=== PATIENT | male | born 1940 | race Caucasian/White ===

== ENCOUNTER 2019-09-21 07:41 | Day surgery (SDC) | payer MEDICARE ==
[~2019-09-21 07:41] MED LIST: ACETAMINOPHEN 325 MG TABLET PO PRN; CEFAZOLIN SODIUM 2 GM in DEXTROSE 5%-WATER 100 ML IV PRN; CELECOXIB 200 MG CAPSULE PO PRN; GABAPENTIN 100 MG CAPSULE PO PRN; LACTATED RINGERS 1000 ML IV PRN; LIDOCAINE 0.5% INJ-PF (5 MG/ML) 50 ML SDV SUBCUT PRN; ONDANSETRON HCL INJ/PF 4 MG/2 ML SDV IV PRN; OXYCODONE HCL SR 10 MG TABLET PO PRN; TRAMADOL HCL 50 MG TABLET PO PRN; TRANEXAMIC ACID INJ/PF 1,000 MG/10 ML SDV IV PRN; TRANEXAMIC ACID INJ/PF 1,000 MG/10 ML SDV ONE; VANCOMYCIN HCL 1,000 MG in DEXTROSE 5%-WATER 250 ML IV PRN
[2019-09-21] MEDS ORDERED: CELECOXIB 200 MG CAPSULE ONE (07:57)
[2019-09-21] MEDS ORDERED: OXYCODONE HCL SR 10 MG TABLET PO ONE (07:57)
[2019-09-21] MEDS ORDERED: ACETAMINOPHEN 325 MG TABLET ONE (07:57)
[2019-09-21] MEDS ORDERED: ONDANSETRON HCL INJ/PF 4 MG/2 ML SDV ONE (07:57)
[2019-09-21] MEDS ORDERED: TRAMADOL HCL 50 MG TABLET ONE (07:57)
[2019-09-21] MEDS ORDERED: GABAPENTIN 100 MG CAPSULE ONE (07:58)
[2019-09-21] MEDS ORDERED: PANTOPRAZOLE SODIUM 20 MG TABLET.DR PO ONE (07:58)
[2019-09-21 08:53] LABS: HEMATOCRIT 35.6 % (37.9-51.0); HEMOGLOBIN 11.9 g/dL (13.5-17.0); MEAN CORPUSCULAR HEMOGLOBIN 29.1 pg (27.0-33.4); MEAN CORPUSCULAR HGB CONC 33.4 g/dL (32.0-36.0); MEAN CORPUSCULAR VOLUME 87 fl (80-97); PLATELET COUNT 188 10^3/uL (150-450); RED BLOOD COUNT 4.08 10^6/uL (4.35-5.55); WHITE BLOOD COUNT 6.3 10^3/uL (4.0-10.5)
[2019-09-21 09:11] LABS: ANION GAP 9 (5-19); BLOOD UREA NITROGEN 44 mg/dL (7-20); CALCIUM 9.8 mg/dL (8.4-10.2); CARBON DIOXIDE 28 mmol/L (22-30); CHLORIDE 102 mmol/L (98-107); GLUCOSE 126 mg/dL (75-110); POTASSIUM 4.6 mmol/L (3.6-5.0)
[2019-09-21] MEDS ORDERED: KETOROLAC TROMETHAMINE INJ/PF 30 MG/1 ML SDV ONE (09:49)
[2019-09-21] MEDS ORDERED: VANCOMYCIN HCL INJ 1000 MG VIAL ONE (09:49)
[2019-09-21] MEDS ORDERED: GENTAMICIN SULFATE INJ 80 MG/2 ML VIAL ONE (09:49)
[2019-09-21] MEDS ORDERED: BUPIVACAINE HCL 0.25 % INJ/PF (2.5 MG/1 ML) 30 ML VIAL ONE (09:49)
[2019-09-21] MEDS ORDERED: BACITRACIN INJ 50,000 UNIT VIAL ONE (09:50)
[2019-09-21] MEDS ORDERED: FENTANYL CITRATE INJ/PF 100 MCG/2 ML AMPUL ONE (10:39)
[2019-09-21] MEDS ORDERED: MIDAZOLAM 2 MG/2 ML INJ ONE (10:40)
[2019-09-21] MEDS ORDERED: PROPOFOL INJ 200 MG/20 ML VIAL IV ONE (10:40)
[2019-09-21] MEDS ORDERED: TRANEXAMIC ACID INJ/PF 1,000 MG/10 ML SDV ONE ×2 (10:46→13:59)
[2019-09-21] MEDS ORDERED: EPINEPHRINE INJ/PF 1 MG/1 ML AMPULE ONE (11:17)
[2019-09-21] MEDS ORDERED: MORPHINE SULFATE 10 MG/ML INJ IV PRN ×2 (11:52→13:52)
[2019-09-21] MEDS ORDERED: ONDANSETRON HCL INJ/PF 4 MG/2 ML SDV IV PRN (11:52)
[2019-09-21] MEDS ORDERED: PROMETHAZINE HCL INJ 25 MG/1 ML VIAL IV PRN (11:52)
[2019-09-21] MEDS ORDERED: DIPHENHYDRAMINE HCL 50 MG/ML VIAL IV PRN (11:52)
[2019-09-21] MEDS ORDERED: FENTANYL CITRATE INJ/PF 100 MCG/2 ML AMPUL IV PRN ×3 (11:52)
[2019-09-21] MEDS ORDERED: OXYCODONE-ACETAMINOPHEN 5-325 MG TABLET PO PRN ×2 (11:52)
[2019-09-21] MEDS ORDERED: MEPERIDINE HCL/PF INJ 25 MG/1 ML DISP.SYRIN IV PRN (11:52)
[2019-09-21] MEDS ORDERED: GENTAMICIN SULFATE INJ 80 MG/2 ML VIAL IV ONE (12:16)
[2019-09-21] MEDS ORDERED: BACITRACIN INJ 50,000 UNIT VIAL IR ONE (12:17)
[2019-09-21] MEDS ORDERED: BUPIVACAINE HCL 0.25 % INJ/PF (2.5 MG/1 ML) 30 ML VIAL INJ ONE (12:17)
[2019-09-21] MEDS ORDERED: KETOROLAC TROMETHAMINE INJ/PF 30 MG/1 ML SDV INJ ONE (12:17)
[2019-09-21] MEDS ORDERED: VANCOMYCIN HCL INJ 1000 MG VIAL IV ONE (12:18)
--- NOTE | 2019-09-21 13:41 | Operative Report ---
Operative Report DATE OF SURGERY: 09/21/19 PREOPERATIVE DIAGNOSIS: Severe left hip primary osteoarthritis POSTOPERATIVE DIAGNOSIS: Severe left hip primary osteoarthritis OPERATION: Left total hip arthroplasty SURGEON: ALEXI IRENE JR ANESTHESIA: Spinal COMPLICATIONS: None ESTIMATED BLOOD LOSS: 200 PROCEDURE: Implants: Hudson Accolade #7 femoral stem, 52 mm Trident cup, 36 mm standard liner, 36 mm -5 ceramic head BRIEF HISTORY: 79year old male with severe degenerative arthritis of left hip, which has failed conservative treatment and has elected for a total hip arthroplasty. Risks include but are not limited to bleeding, infection, anesthesia, , injury to nerve or vessel, pain, scar, leg length inequality, dislocation, future surgery, and blood clots. Patient read through the pre-op counseling form and signed and solicited for surgery on their left hip. Preoperatively the patient was noted to have a approximately a 2 cm leg length discrepancy on the left, with the operative leg being longer than that of the nonoperative OPERATIVE PROCEDURE: Patient was brought to the operating room on and underwent spinal anesthesia. 2 grams of Ancef and a gram of vancomycin was given. After proper anesthesia was obtained, patient was positioned, padded, prepped, and draped in the usual sterile fashion on the operating room table. Appropriate time out was performed. A anterior approach to the hip was undertaken with meticulous hemostasis. The femoral neck was cut in line with the femoral broach and the femoral head was removed. The acetabulum was then exposed with three retractors in an atraumatic fashion. Soft tissue and osteophytes were removed. Medialization reaming was performed followed by anatomic reaming up to accept a 52 mm acetabulum. The 52 mm acetabulum was impacted into correct position and stability checked with Abhishek test. A 36 standard liner was impacted into the shell with good stability. Potential impinging osteophytes were removed. Attention was then directed toward the femur, which was exposed with two retractors in an atraumatic fashion. rib cutter, lateralization rasping and then broaching up to accept a #6 femur. With a lateral offset neck and a -5 head, stability was good in flexion and extension with about 5mm to 1 cm long on the left. There is a little bit excess shuck and after checking under fluoroscopy there seemed to be a slight amount of room to increase the femoral stem size to #7. The 6 broach was removed and the 7 was then worked until it set well at the calcar. The femoral canal was then thoroughly irrigated and the real implant was impacted. A -5 head was then impacted onto a clean and dry femoral taper. The hip was irrigated and reduced, and leg lengths were approximately 1 cm long on the left. Further irrigation with antibiotic solution, betadine solution, then antibiotic solution was performed. Bleeders were coagulated with bovie cautery. 1 g of vancomycin was applied to the joint. The fascia was then closed with number 2 Stratofix; the subcutaneous tissue closed with interrupted 2-0 Monocryl then running 3-0 monocryl subcuticular. Dermabond skin glue was applied followd by a silver dressing. All needle sponge and instrument counts were correct. Patient was awakened from sedation anesthesia and taken to recovery room in good condition. Thank you, Alexi Irene DO
[2019-09-21] MEDS ORDERED: OXYCODONE HCL IR 5 MG TABLET PO PRN (13:51)
[2019-09-21] MEDS ORDERED: TRAMADOL HCL 50 MG TABLET PO PRN (13:52)
[2019-09-21] MEDS ORDERED: DIPHENHYDRAMINE HCL 25 MG CAPSULE PO PRN (13:54)
[2019-09-21] MEDS ORDERED: DOCUSATE SODIUM 100 MG CAPSULE PO PRN (13:55)
[2019-09-21] MEDS ORDERED: ZOLPIDEM TARTRATE 5 MG TABLET PO PRN (13:55)
[2019-09-21] MEDS ORDERED: NORMAL SALINE 1000 ML 1,000 ML IV PRN (13:56)
[2019-09-21] MEDS ORDERED: ONDANSETRON 4 MG TAB.RAPDIS PO PRN (13:56)
--- NOTE | 2019-09-21 14:05 | RADIOLOGY REPORT (SQ) ---
EXAM DESCRIPTION: HIP LEFT AP/LATERAL COMPLETED DATE/TIME: 09/21/2019 1:56 pm REASON FOR STUDY: POST OP M16.12 UNILATERAL PRIMARY OSTEOARTHRITIS, LEFT HIP COMPARISON: None. NUMBER OF VIEWS: Two view(s). TECHNIQUE: Digital radiographic images of the left hip post-procedure. LIMITATIONS: None. FINDINGS: BONES: No worrisome or unexpected findings post-procedure. DEVICE: Bi-polar prothesis. Device appears in appropriate location. SOFT TISSUES: No worrisome findings. Expected postoperative soft tissue changes. IMPRESSION: SATISFACTORY POSTOPERATIVE LEFT HIP. TECHNICAL DOCUMENTATION: JOB ID: [id number] [employer] All Rights Reserved Reading location - IP/workstation name: [email or web address]
[2019-09-21] MEDS: ACETAMINOPHEN 325 MG TABLET PO SCH ×2 (14:50→21:44)
[2019-09-21] MEDS ORDERED: CEFAZOLIN SODIUM 2 GM in DEXTROSE 5%-WATER 100 ML IV SCH (15:00)
--- NOTE | 2019-09-21 15:14 | RADIOLOGY REPORT (SQ) ---
EXAM DESCRIPTION: NO CHG FLUORO; HIP IN OPERATING RM COMPLETED DATE/TIME: 09/21/2019 3:04 pm REASON FOR STUDY: LEFT HIP ARTHROPLASTY ASST WITH FLUORO IN OR M16.12 UNILATERAL PRIMARY OSTEOARTHR ITIS, LEFT HIP COMPARISON: None. FLUOROSCOPY TIME: 0.1 minutes 2 images saved to PACS. TECHNIQUE: Intra-operative images acquired during surgical procedure to evaluate progress. NUMBER OF IMAGES: 2 LIMITATIONS: None. FINDINGS: Bipolar left hip arthroplasty. IMPRESSION: IMAGE(S) OBTAINED DURING PROCEDURE. COMMENT: Quality ID 145: Final reports for procedures using fluoroscopy that document radiation exp osure indices, or exposure time and number of fluorographic images (if radiation exposure indices are not available) Please consult full operative report of the attending physician for description of the procedure. TECHNICAL DOCUMENTATION: JOB ID: [id number] [employer]- All Rights Reserved Reading location - IP/workstation name: [email or web address]
--- NOTE | 2019-09-21 15:14 | RADIOLOGY REPORT (SQ) ---
EXAM DESCRIPTION: NO CHG FLUORO; HIP IN OPERATING RM COMPLETED DATE/TIME: 09/21/2019 3:04 pm REASON FOR STUDY: LEFT HIP ARTHROPLASTY ASST WITH FLUORO IN OR M16.12 UNILATERAL PRIMARY OSTEOARTHR ITIS, LEFT HIP COMPARISON: None. FLUOROSCOPY TIME: 0.1 minutes 2 images saved to PACS. TECHNIQUE: Intra-operative images acquired during surgical procedure to evaluate progress. NUMBER OF IMAGES: 2 LIMITATIONS: None. FINDINGS: Bipolar left hip arthroplasty. IMPRESSION: IMAGE(S) OBTAINED DURING PROCEDURE. COMMENT: Quality ID 145: Final reports for procedures using fluoroscopy that document radiation exp osure indices, or exposure time and number of fluorographic images (if radiation exposure indices are not available) Please consult full operative report of the attending physician for description of the procedure. TECHNICAL DOCUMENTATION: JOB ID: [id number] [employer]- All Rights Reserved Reading location - IP/workstation name: [email or web address]
[2019-09-21] MEDS: KETOROLAC TROMETHAMINE INJ/PF 30 MG/1 ML SDV IV SCH ×2 (17:37→21:43)
[2019-09-21] MEDS: CEFAZOLIN SODIUM 2 GM in DEXTROSE 5%-WATER 100 ML IV SCH (17:44)
[2019-09-21] MEDS: GABAPENTIN 100 MG CAPSULE PO SCH (17:45)
[2019-09-21] MEDS ORDERED: PANTOPRAZOLE SODIUM 20 MG TABLET.DR PO SCH (22:00)
[2019-09-22] MEDS: CEFAZOLIN SODIUM 2 GM in DEXTROSE 5%-WATER 100 ML IV SCH (02:15)
[2019-09-22] MEDS: OXYCODONE HCL IR 5 MG TABLET PO PRN ×2 (02:22→10:58)
[2019-09-22] MEDS: ACETAMINOPHEN 325 MG TABLET PO SCH ×2 (06:45→15:14)
[2019-09-22] MEDS: KETOROLAC TROMETHAMINE INJ/PF 30 MG/1 ML SDV IV SCH ×2 (06:46→15:15)
--- NOTE | 2019-09-22 07:59 | PDOC PROGRESS REPORT ---
Subjective Progress Note for:: 09/22/19 Subjective:: She is doing well this morning. He reports feeling great, has walked multiple times and is without considerable pain. He does report pain when in the recumbent position with stretching in his anterior thigh on the left, however otherwise he has no new symptoms or acute events overnight Reason For Visit: LEFT HIP ARTHRITIS Physical Exam Vital Signs: Temp Pulse Resp BP Pulse Ox 98.4 F 51 L 17 98/31 L 93 09/22/19 00:18 09/22/19 00:18 09/22/19 00:18 09/22/19 00:18 09/22/19 00:18 Intake & Output 09/21/19 09/22/19 09/23/19 06:59 06:59 06:59 Intake Total 3990 Output Total 400 Balance 3590 Weight 85.1 kg Physical Exam: General appearance: PRESENT: no acute distress, cooperative, well-nourished Head exam: PRESENT: atraumatic, normocephalic Eye exam: PRESENT: EOMI Ear exam: PRESENT: normal external ear exam Mouth exam: PRESENT: neck supple Neck exam: ABSENT: tracheal deviation Respiratory exam: PRESENT: symmetrical, unlabored. ABSENT: accessory muscle use, wheezes Pulses: PRESENT: normal radial pulses, normal dorsalis pedis pulse Vascular exam: PRESENT: normal capillary refill GI/Abdominal exam: ABSENT: distended, firm Extremities exam: PRESENT: full ROM of bilateral shoulders, elbows wrists, knees, hips and ankles without pain Musculoskeletal exam: PRESENT: full ROM, normal inspection of all 4 extremities aside from that noted below. Neurological exam: PRESENT: alert, awake, oriented to person, oriented to place, oriented to time Psychiatric exam: PRESENT: appropriate affect. ABSENT: agitated Focused psych exam: ABSENT: catatonic Skin exam: PRESENT: intact. ABSENT: dry All as above aside from that noted in the HPI and the following: Left lower extremity -Pulses 2+ distally -Compartments soft -Wound clean dry and intact no drainage in appropriate swelling for postop day -Sensation grossly intact to L3-4-5 S1 -Motor grossly intact to EHL TA gastroc and quad - Able to perform quad extension and elevate heel off of bed. Results Laboratory Results: 09/21/19 08:30 09/21/19 08:30 09/21/19 09/21/19 09/21/19 08:30 08:30 08:30 WBC 6.3 RBC 4.08 L Hgb 11.9 L Hct 35.6 L MCV 87 MCH 29.1 MCHC 33.4 RDW 14.0 Plt Count 188 Sodium 138.9 Potassium 4.6 Chloride 102 Carbon Dioxide 28 Anion Gap 9 BUN 44 H Creatinine 1.59 H Est GFR ( Amer) 51 L Glucose 126 H Calcium 9.8 Blood Type A POSITIVE Antibody Screen NEGATIVE Impressions: Fluoroscopy 09/21/19 00:00 IMPRESSION: IMAGE(S) OBTAINED DURING PROCEDURE. Hip X-Ray 09/21/19 00:00 IMPRESSION: IMAGE(S) OBTAINED DURING PROCEDURE. Assessment & Plan - Diagnosis (1) S/P total hip arthroplasty Is this a current diagnosis for this admission?: Yes Plan: Patient is status post total hip arthroplasty on the left, postoperative day #1 - 2 doses of Ancef postoperatively q 8 hours to complete 24 hours perioperatively -Weightbearing as tolerated, no precautions, encourage out of bed FORTUNATO for ADL training - PT/OT -aspirin 325 daily for DVT prophylaxis for 6 weeks -multimodal pain management to avoid excessive narcotics, including gabapentin, tramadol, Toradol, acetaminophen. -Dressing should not be removed for 7 to 10 days until seen in the office -May shower with the dressing intact, if it starts to come off she should not get the incision wet. -I would like to follow the patient my office within the next 7 to 10 days at [address] [place] [address]. in [place] office #: [phone] - Time Time Spent with patient: Less than 15 minutes
[2019-09-22] MEDS ORDERED: ASPIRIN 325 MG TABLET PO SCH (10:00)
[2019-09-22] MEDS ORDERED: POLYETHYLENE GLYCOL 3350 POWDER 17 GM/1 PACKET PO SCH (10:00)
[2019-09-22] MEDS: GABAPENTIN 100 MG CAPSULE PO SCH (11:01)
[2019-09-22 16:51] VITALS: BP 103/50
[2019-09-23] MEDS ORDERED: CELECOXIB 200 MG CAPSULE PO SCH (10:00)
--- NOTE | 2019-09-26 21:56 | PDOC DISCHARGE SUMMARY ---
Impression - Admit/DC Date/PCP Admission Date/Primary Care Provider: 09/21/19 07:41 NORIS MONSON MD Discharge Date: 09/22/19 - Discharge Diagnosis (1) S/P total hip arthroplasty Is this a current diagnosis for this admission?: Yes - Additional Information Resuscitation Status: Full Code Discharge Diet: As Tolerated Discharge Activity: Activity As Tolerated, No Driving, Keep Legs Elevated, No Lifting/Push/Pulling, Slowly Increase Activity, Walk Frequently Referrals: GEOFF IRENE JR, DO [ACTIVE PROVISIONAL STAFF] - 10/04/19 10:05 am Home Medications: Acetaminophen [Acetaminophen Extra Strength] 1,000 mg PO Q12HP PRN 09/21/19 Aspirin [Aspirin 325 mg Tablet] 325 mg PO DAILY PRN 09/21/19 Atorvastatin Calcium [Lipitor 80 mg Tablet] 80 mg PO QHS 09/21/19 Celecoxib [Celebrex 100 mg Capsule] 100 mg PO BID 09/21/19 Citalopram Hydrobromide [Celexa 20 mg Tablet] 20 mg PO DAILY 09/21/19 Fenofibrate,Micronized [Fenofibrate] 134 mg PO DAILY 09/21/19 Gabapentin [Neurontin 100 mg Capsule] 100 mg PO Q12 09/21/19 Glimepiride [Amaryl 1 mg Tablet] 1 mg PO BID 09/21/19 Hydrochlorothiazide [Hydrodiuril 25 mg Tablet] 25 mg PO QAM 09/21/19 Lisinopril [Prinivil] 5 mg PO DAILY 09/21/19 Metoprolol Succinate [Toprol Xl 25 mg Tab.sr] 25 mg PO QAMPM 09/21/19 Oxycodone HCl 5 mg PO Q6HP PRN 09/21/19 Pioglitazone HCl [Actos] 15 mg PO DAILY 09/21/19 Sitagliptin Phosphate [Januvia] 100 mg PO DAILY 09/21/19 Tramadol HCl [Ultram 50 mg Tablet] 50 mg PO Q4HP PRN 09/21/19 History of Present Illiness History of Present Illness: CUONG GALAN is a 79 year old male who scheduled a left total hip arthroplasty due to severe primary osteoarthritis with severe debilitating pain. Hospital Course Hospital Course: Mr. Galan is a very pleasant 79-year-old male who presented to my clinic with chronic left hip pain that is been going on for over a year. After thorough work-up and attempts at conservative treatment including activity modification and [id number] pain medication, they were having severe difficulty with ambulation and was over the counter pain medication for daily activity. They found the pain debilitating and decreasing thier quality of life as they were unable to perform activities of daily living such as ambulating short distances and getting in and out of the car. After a thorough work-up including x-rays that demonstrated joint space narrowing, [id number] contact, subchondral sclerosis, and osteophyte formation as well as discussing risks and benefits and other treatment options, the patient elected to proceed with a left total hip arthroplasty. They were brought to the operating room on 09/21/2019 and underwent a left total hip arthroplasty and tolerated procedure very well with out complication. They were then admitted to the hospital floor for postoperative medical management, monitoring, and pain control. On postoperative day #1 they were ambulating well with physical therapy, to the degree that they approved them for discharge home. They were discharged home on 09/22/2019. They had no acute events or complications over the course of their stay. All detailed instructions and prescriptions were provided to the patient prior to admission on the year prior office visit. Physical Exam Vital Signs: Temp Pulse Resp BP Pulse Ox 99.3 F 76 14 103/50 L 89 L 09/22/19 16:49 09/22/19 16:49 09/22/19 16:49 09/22/19 16:49 09/22/19 16:49 Results Laboratory Results: WBC 6.3 10^3/uL (4.0-10.5) 09/21/19 08:30 RBC 4.08 10^6/uL (4.35-5.55) L 09/21/19 08:30 Hgb 11.9 g/dL (13.5-17.0) L 09/21/19 08:30 Hct 35.6 % (37.9-51.0) L 09/21/19 08:30 MCV 87 fl (80-97) 09/21/19 08:30 MCH 29.1 pg (27.0-33.4) 09/21/19 08:30 MCHC 33.4 g/dL (32.0-36.0) 09/21/19 08:30 RDW 14.0 % (11.5-14.0) 09/21/19 08:30 Plt Count 188 10^3/uL (150-450) 09/21/19 08:30 Sodium 138.9 mmol/L (137-145) 09/21/19 08:30 Potassium 4.6 mmol/L (3.6-5.0) 09/21/19 08:30 Chloride 102 mmol/L (98-107) 09/21/19 08:30 Carbon Dioxide 28 mmol/L (22-30) 09/21/19 08:30 Anion Gap 9 (5-19) 09/21/19 08:30 BUN 44 mg/dL (7-20) H 09/21/19 08:30 Creatinine 1.59 mg/dL (0.52-1.25) H 09/21/19 08:30 Est GFR ( Amer) 51 (>60) L 09/21/19 08:30 Est GFR (MDRD) Non-Af 42 (>60) L 09/21/19 08:30 Glucose 126 mg/dL (75-110) H 09/21/19 08:30 POC Glucose 130 mg/dL (70-110) H 09/21/19 08:35 Calcium 9.8 mg/dL (8.4-10.2) 09/21/19 08:30 Blood Type A POSITIVE 09/21/19 08:30 Antibody Screen NEGATIVE 09/21/19 08:30 Impressions: Fluoroscopy 09/21/19 00:00 IMPRESSION: IMAGE(S) OBTAINED DURING PROCEDURE. Hip X-Ray 09/21/19 00:00 IMPRESSION: SATISFACTORY POSTOPERATIVE LEFT HIP. Hip X-Ray 09/21/19 00:00 IMPRESSION: IMAGE(S) OBTAINED DURING PROCEDURE. Plan Plan of Treatment: Full details of postoperative instructions have been provided to the patient in the clinic. Additionally they should maintain their bandage in place for 5 to 7 days, and then changed to a dry dressing. They can take showers with this occlusive dressing but any further dressing should also be occlusive. No showers with the wound unprotected until cleared by me in the clinic. If the bandage falls off early or become saturated they can change as needed to another occlusive dressing. Stroke Is this a Stroke Patient?: No Acute Heart Failure - Is this a Heart Failure Patient?: No
== END 2019-09-22 17:13 | disposition home or self-care (01) ==
LOC: UNDOADMIN 07:41 → OROUT 07:41 → INOR 07:41 → EDSTATUS 09:45 → 5 14:33 → INOR 14:33 → UNDODISIN 09-22 17:13 → OROUT 09-22 17:13
PROVIDERS: ATTEND Orthopaedic Surgery
DX: M16.12 Unilateral primary osteoarthritis, left hip (principal); I45.10 Unspecified right bundle-branch block; I10 Essential (primary) hypertension; Z95.5 Presence of coronary angioplasty implant and graft; E11.9 Type 2 diabetes mellitus without complications; Z79.84 Long term (current) use of oral hypoglycemic drugs; Z87.891 Personal history of nicotine dependence; Z79.82 Long term (current) use of aspirin
CPT/HCPCS: 86900; 86901; 36415; 86850; 82962; 85027; 80048; 73502; 73501; 97530; 97110 ×2; 97116 ×2; 97163; 97535; 97167; 01214; 27130; C1776 ×3; C1887; A9270 ×12; J2250; J3490 ×2; J0690 ×2; J0171; J1580; J1885 ×2; J2405; J7060 ×3; J7030; J2704; J3370; 72170; J3010